=== PATIENT | male | born 1945 | race Two or more races ===

== ENCOUNTER 2016-09-30 16:46 | Inpatient (IN) | payer OTHER ==
[~2016-09-30] VITALS: Ht 175.3 cm; Wt 127.5 kg
[~2016-09-30 16:46] MED LIST: AMLODIPINE; ATENOLOL; ETOMIDATE 2MG/ML 10ML VIAL IV ONE; GLIPIZIDE; LASIX; LIPITOR; LISINOPRIL; SUCCINYLCHOLINE CHLORIDE 200MG/10ML VIAL IV ONE
[2016-09-30] MEDS ORDERED: SODIUM CHLORIDE 0.9% 1,000 ML IV ONE (17:06)
[2016-09-30] MEDS ORDERED: ETOMIDATE 2MG/ML 10ML VIAL IV ONE (17:15)
[2016-09-30] MEDS ORDERED: SUCCINYLCHOLINE CHLORIDE 200MG/10ML VIAL IV ONE (17:15)
[2016-09-30] MEDS ORDERED: PROPOFOL 10MG/ML 100ML 100 ML IV SCH (17:15)
[2016-09-30 17:46] LABS: BASOPHILS % 0.6 % (0.0-2.0); EOSINOPHILS % 2.1 % (0.0-5.0); HEMATOCRIT. 43.5 % (42.0-52.0); HEMOGLOBIN. 13.9 g/dL (14.0-18.0); LYMPHOCYTES % 25.5 % (20.0-50.0); MEAN CORPUSCULAR HEMOGLOBIN 26.8 pg (28.0-32.0); MEAN CORPUSCULAR VOLUME 83.7 fL (80.0-94.0); MEAN PLATELET VOLUME 9.6 fl (7.4-10.4); MONOCYTES % 6.7 % (2.0-8.0); NEUTROPHILS % 65.1 % (40.0-76.0); PLATELET 139 x1000/uL (130-400); RED BLOOD CELL COUNT 5.19 mill/uL (4.7-6.1); RED CELL DISTRIBUTION WIDTH 14.8 % (11.6-14.6)
[2016-09-30 17:49] LABS: CHLORIDE 100 mEq/L (98-107)
[2016-09-30 17:50] LABS: CARBON DIOXIDE 31 mEq/L (21-32)
[2016-09-30 17:51] LABS: INR 1.2; PROTHROMBIN TIME 12.9 sec
[2016-09-30 17:54] LABS: AMMONIA 34 uMol/L (<32); ETHANOL BLOOD < 10 mg/dL
[2016-09-30] MEDS ORDERED: SODIUM CHLORIDE 0.9% 2,500 ML IV ONE (18:13)
[2016-09-30] MEDS ORDERED: LEVOFLOXACIN 750MG PREMIX 150 ML IV ONE (18:15)
[2016-09-30] MEDS ORDERED: EPINEPHRINE 1 MG in SODIUM CHLORIDE 0.9% 249 ML IV PRN (18:15)
[2016-09-30] MEDS ORDERED: PIPERACILLIN SODIUM/TAZOBACTAM 4.5 G in DEXT 5% WATER 100 ML IV SCH (18:15)
[2016-09-30] MEDS ORDERED: VANCOMYCIN 1,500 MG in DEXT 5% WATER 250 ML IV SCH (18:15)
[2016-09-30 18:17] LABS: CLARITY URINE CLEAR (CLEAR); COLOR URINE YELLOW (YELLOW); GLUCOSE URINE NEGATIVE (NEGATIVE); KETONES URINE NEGATIVE (NEGATIVE); LEUKOCYTE ESTERASE URINE NEGATIVE (NEGATIVE); NITRITE URINE NEGATIVE (NEGATIVE); OCCULT BLOOD URINE 2+ (NEGATIVE); PH URINE 6.5 (4.5-8.0); PROTEIN URINE 3+ (NEGATIVE); SPECIFIC GRAVITY URINE 1.012 (1.005-1.030); UROBILINOGEN URINE 0.2 E.U./dL (0.2-1.0)
[2016-09-30 18:24] LABS: BG BASE EXCESS 0.6 mmol/L (-2.0-2.0); BG CARBOXYHEMOGLOBIN 0.4 % (0.5-1.5); BG DEOXYHEMOGLOBIN 1.5 % (0.0-5.0); BG HCO3 ACT 27.1 mmol/L (22.0-26.0); BG METHEMOGLOBIN 0.3 % (0.0-1.5); BG OXYGEN SATURATION 98.5 % (92.0-98.5); BG OXYHEMOGLOBIN 97.8 % (94.0-97.0); BG PCO2 51.3 mmHg (35.0-45.0); BG PH 7.341 (7.350-7.450); BG PO2 154.2 mmHg (75.0-100.0); BG SAMPLE SITE RIGHT RADIAL; BG TIDAL VOLUME(mL) 500 mL; BG TOTAL HEMOGLOBIN 13.3 g/dL (12.0-18.0); BG VENT MODE VENT - A/C; BG VENT RATE 14 set
[2016-09-30] MEDS ORDERED: EPINEPHRINE 1 MG in SODIUM CHLORIDE 0.9% 250 ML IV PRN (18:30)
[2016-09-30 18:56] LABS: *AMPHETAMINES SCREEN URINE NEGATIVE (NEGATIVE); *BARBITURATES SCREEN URINE NEGATIVE (NEGATIVE); *BENZODIAZEPINES SCREEN URINE NEGATIVE (NEGATIVE); *COCAINE SCREEN URINE NEGATIVE (NEGATIVE); CANNABINOID URINE SCREEN PRESUMTIVE POSITIVE (NEGATIVE); METHADONE URINE SCREEN NEGATIVE (NEGATIVE); OPIATES URINE SCREEN NEGATIVE (NEGATIVE); PHENCYCLIDINE URINE SCREEN NEGATIVE (NEGATIVE)
[2016-09-30] MEDS ORDERED: LORAZEPAM 2MG/ML CPJ IV ONE ×2 (19:15→19:30)
[2016-09-30] MEDS ORDERED: MIDAZOLAM HCL 50 MG in DEXTROSE 5% WATER 40 ML IV ONE ×2 (20:15→20:30)
[2016-09-30] MEDS ORDERED: MIDAZOLAM HCL 2 MG/2 ML VIAL IV ONE (21:00)
[2016-09-30 22:26] VITALS: BP 103/53
[2016-09-30] MEDS ORDERED: SODIUM CHLORIDE 0.9% 1,000 ML IV SCH (22:27)
[2016-09-30] MEDS ORDERED: IPRATROPIUM/ALBUTEROL 0.5-3(2.5)MG/3ML NEB INH PRN (22:30)
[2016-09-30] MEDS ORDERED: ONDANSETRON HCL 4MG/2ML VIAL IV PRN (22:30)
[2016-09-30] MEDS ORDERED: LORAZEPAM 2MG/ML CPJ IV PRN (22:30)
[2016-09-30] MEDS ORDERED: DEXTROSE 50% WATER 50ML SYRINGE IV PRN (22:30)
[2016-09-30] MEDS ORDERED: DIPHENHYDRAMINE 50MG/ML VIAL IV PRN (22:30)
[2016-09-30] MEDS ORDERED: ACETAMINOPHEN 650MG SUPP PR PRN (22:30)
[2016-09-30 22:45] VITALS: BP 120/57
[2016-09-30 23:00] VITALS: BP 118/58
[2016-09-30 23:15] VITALS: BP 116/55
[2016-09-30 23:30] VITALS: BP 115/57
[2016-09-30] MEDS ORDERED: DOPAMINE 400MG PREMIX 250 ML IV PRN (23:30)
[2016-09-30] MEDS ORDERED: IPRATROPIUM/ALBUTEROL 0.5-3(2.5)MG/3ML NEB HHN PRN (23:30)
[2016-09-30] MEDS ORDERED: NOREPINEPHRINE 4 MG in DEXT 5% WATER 246 ML IV PRN (23:30)
[2016-09-30 23:45] VITALS: BP_SYST 103; BP_SYST 112; BP_DIAS 51; BP_DIAS 53
[2016-10-01] VITALS (96 sets, daily range): BP systolic 83–142; BP diastolic 41–86
[2016-10-01] MEDS ORDERED: DEXT 5%/0.45% NACL 1000ML 1,000 ML IV SCH
[2016-10-01] MEDS: IPRATROPIUM/ALBUTEROL 0.5-3(2.5)MG/3ML NEB HHN SCH ×7 (00:06→23:37)
[2016-10-01] MEDS: INSULIN LISPRO 100 UNITS/ML SUBCUT SCH ×4 (00:37→17:42)
[2016-10-01] MEDS: BLOOD SUGAR DIAGNOSTIC STRIP TEST SCH ×4 (00:38→17:24)
[2016-10-01] MEDS ORDERED: PIPERACILLIN/TAZ 3.375G PREMIX 50 ML IV SCH (04:00)
[2016-10-01 05:55] LABS: BASOPHILS % 0.5 % (0.0-2.0); EOSINOPHILS % 0.8 % (0.0-5.0); HEMATOCRIT. 40.2 % (42.0-52.0); LYMPHOCYTES % 9.4 % (20.0-50.0); MEAN CORPUSCULAR HEMOGLOBIN 26.7 pg (28.0-32.0); MEAN CORPUSCULAR VOLUME 82.6 fL (80.0-94.0); MEAN PLATELET VOLUME 10.3 fl (7.4-10.4); MONOCYTES % 9.9 % (2.0-8.0); NEUTROPHILS % 79.4 % (40.0-76.0); PLATELET 125 x1000/uL (130-400); RED BLOOD CELL COUNT 4.86 mill/uL (4.7-6.1); RED CELL DISTRIBUTION WIDTH 15.3 % (11.6-14.6)
[2016-10-01 06:38] LABS: CARBON DIOXIDE 27 mEq/L (21-32); CHLORIDE 103 mEq/L (98-107); TROPONIN I < 0.02 ng/mL (0.00-0.04)
[2016-10-01] MEDS: DEXT 5%/0.9% NACL 1,000 ML IV SCH ×2 (08:15→21:41)
[2016-10-01] MEDS ORDERED: INSULIN LISPRO 100 UNITS/ML SUBCUT SCH (08:20)
[2016-10-01] MEDS ORDERED: GLUCAGON,HUMAN RECOMBINANT 1MG/VIAL IV NR (08:30)
[2016-10-01] MEDS ORDERED: SODIUM CHLORIDE 0.9% 500 ML IV ONE (08:30)
[2016-10-01] MEDS ORDERED: CEFEPIME 1,000 MG in DEXTROSE 5% WATER 50 ML IV SCH (08:45)
[2016-10-01 08:59] LABS: BG BASE EXCESS 2.3 mmol/L (-2.0-2.0); BG CARBOXYHEMOGLOBIN 0.4 % (0.5-1.5); BG DEOXYHEMOGLOBIN 2.4 % (0.0-5.0); BG FRACTION INSPIRED OXYGEN 90; BG HCO3 ACT 26.8 mmol/L (22.0-26.0); BG METHEMOGLOBIN 0.2 % (0.0-1.5); BG OXYGEN SATURATION 97.6 % (92.0-98.5); BG PH 7.433 (7.350-7.450); BG PO2 105.6 mmHg (75.0-100.0); BG SAMPLE SITE LEFT RADIAL; BG TIDAL VOLUME(mL) 500 mL; BG VENT MODE VENT - A/C; BG VENT RATE 14 set
[2016-10-01] MEDS: DOPAMINE 400MG PREMIX 250 ML IV PRN ×2 (09:00→21:48)
[2016-10-01] MEDS ORDERED: BLOOD SUGAR DIAGNOSTIC STRIP TEST SCH (09:00)
[2016-10-01 09:03] LABS: T4 FREE 1.05 ng/dL (0.76-1.46)
[2016-10-01] MEDS: ASPIRIN 81MG TABLET PO SCH (09:16)
[2016-10-01] MEDS: PANTOPRAZOLE SODIUM 40 MG/VIAL IV SCH (09:17)
[2016-10-01] MEDS: ENOXAPARIN 40MG/0.4ML SYR SUBCUT SCH (09:17)
[2016-10-01] MEDS: PROPOFOL 10MG/ML 100ML 100 ML IV PRN ×3 (09:55→22:35)
[2016-10-01] MEDS: CEFEPIME 2,000 MG in DEXT 5% WATER 100 ML IV SCH (10:45)
[2016-10-01 11:11] LABS: *AMPHETAMINES SCREEN URINE NEGATIVE (NEGATIVE); *BARBITURATES SCREEN URINE NEGATIVE (NEGATIVE); *BENZODIAZEPINES SCREEN URINE PRESUMTIVE POSITIVE (NEGATIVE); *COCAINE SCREEN URINE NEGATIVE (NEGATIVE); CANNABINOID URINE SCREEN PRESUMTIVE POSITIVE (NEGATIVE); METHADONE URINE SCREEN NEGATIVE (NEGATIVE); OPIATES URINE SCREEN NEGATIVE (NEGATIVE); PHENCYCLIDINE URINE SCREEN NEGATIVE (NEGATIVE)
[2016-10-01] MEDS: METRONIDAZOLE 500 MG PREMIX 100 ML IV SCH ×2 (11:57→17:33)
[2016-10-01 12:55] LABS: HEPATITIS B SURFACE ANTIGEN NEGATIVE
[2016-10-01 13:23] LABS: HEPATITIS B CORE AB IGM NEGATIVE
[2016-10-01 13:25] LABS: HEPATITIS A AB IGM NEGATIVE (NEGATIVE)
[2016-10-01 15:45] LABS: CREATINE KINASE 298 IU/L (39-308); CREATINE KINASE MB FRACTION 2.6 ng/mL (0.5-3.6); TROPONIN I < 0.02 ng/mL (0.00-0.04)
[2016-10-01 23:05] LABS: CREATINE KINASE MB FRACTION 2.4 ng/mL (0.5-3.6)
[2016-10-02] VITALS (41 sets, daily range): BP systolic 102–134; BP diastolic 50–71
[2016-10-02] MEDS: METRONIDAZOLE 500 MG PREMIX 100 ML IV SCH ×4 (00:24→21:04)
[2016-10-02] MEDS: INSULIN LISPRO 100 UNITS/ML SUBCUT SCH ×5 (00:25→23:39)
[2016-10-02] MEDS: IPRATROPIUM/ALBUTEROL 0.5-3(2.5)MG/3ML NEB HHN SCH ×6 (03:22→23:50)
[2016-10-02] MEDS: PROPOFOL 10MG/ML 100ML 100 ML IV PRN ×4 (05:35→21:05)
[2016-10-02] MEDS: BLOOD SUGAR DIAGNOSTIC STRIP TEST SCH ×5 (06:00→23:39)
[2016-10-02 07:38] LABS: BASOPHILS % 0.3 % (0.0-2.0); EOSINOPHILS % 1.4 % (0.0-5.0); HEMATOCRIT. 39.1 % (42.0-52.0); HEMOGLOBIN. 12.7 g/dL (14.0-18.0); LYMPHOCYTES % 8.3 % (20.0-50.0); MEAN CORPUSCULAR HEMOGLOBIN 27.1 pg (28.0-32.0); MEAN CORPUSCULAR VOLUME 83.2 fL (80.0-94.0); MEAN PLATELET VOLUME 10.8 fl (7.4-10.4); MONOCYTES % 10.6 % (2.0-8.0); NEUTROPHILS % 79.4 % (40.0-76.0); PLATELET 119 x1000/uL (130-400); RED CELL DISTRIBUTION WIDTH 15.1 % (11.6-14.6)
[2016-10-02] MEDS: ASPIRIN 81MG TABLET PO SCH (08:26)
[2016-10-02] MEDS: PANTOPRAZOLE SODIUM 40 MG/VIAL IV SCH (08:26)
[2016-10-02] MEDS: ENOXAPARIN 40MG/0.4ML SYR SUBCUT SCH (08:27)
[2016-10-02] MEDS: CEFEPIME 2,000 MG in DEXT 5% WATER 100 ML IV SCH (08:27)
[2016-10-02 09:39] LABS: BG BASE EXCESS -2.1 mmol/L (-2.0-2.0); BG CARBOXYHEMOGLOBIN 0.3 % (0.5-1.5); BG DEOXYHEMOGLOBIN 8.5 % (0.0-5.0); BG HCO3 ACT 23.1 mmol/L (22.0-26.0); BG METHEMOGLOBIN 0.4 % (0.0-1.5); BG OXYGEN SATURATION 91.4 % (92.0-98.5); BG OXYHEMOGLOBIN 90.8 % (94.0-97.0); BG PCO2 41.3 mmHg (35.0-45.0); BG PH 7.366 (7.350-7.450); BG PO2 65.8 mmHg (75.0-100.0); BG SAMPLE SITE RIGHT RADIAL; BG TIDAL VOLUME(mL) 500 mL; BG TOTAL HEMOGLOBIN 13.3 g/dL (12.0-18.0); BG VENT MODE VENT - A/C; BG VENT RATE 14 set
[2016-10-02] MEDS: DEXT 5%/0.9% NACL 1,000 ML IV SCH ×2 (10:25→23:33)
[2016-10-02] MEDS ORDERED: MAGNESIUM 1 G PREMIX 100 ML IV NR (10:30)
[2016-10-03] VITALS (79 sets, daily range): BP systolic 102–141; BP diastolic 49–77
[2016-10-03] MEDS: PROPOFOL 10MG/ML 100ML 100 ML IV PRN ×3 (03:58→21:28)
[2016-10-03 04:50] LABS: HEMATOCRIT. 37.1 % (42.0-52.0); HEMOGLOBIN. 12.2 g/dL (14.0-18.0); MEAN CORPUSCULAR HEMOGLOBIN 27.3 pg (28.0-32.0); MEAN CORPUSCULAR VOLUME 83.1 fL (80.0-94.0); MEAN PLATELET VOLUME 10.1 fl (7.4-10.4); PLATELET 100 x1000/uL (130-400); RED BLOOD CELL COUNT 4.47 mill/uL (4.7-6.1)
[2016-10-03] MEDS: IPRATROPIUM/ALBUTEROL 0.5-3(2.5)MG/3ML NEB HHN SCH ×5 (04:50→20:11)
[2016-10-03] MEDS: METRONIDAZOLE 500 MG PREMIX 100 ML IV SCH ×2 (05:57→13:11)
[2016-10-03] MEDS: BLOOD SUGAR DIAGNOSTIC STRIP TEST SCH ×3 (06:00→18:00)
[2016-10-03] MEDS: INSULIN LISPRO 100 UNITS/ML SUBCUT SCH ×3 (06:14→18:00)
[2016-10-03] MEDS ORDERED: BISACODYL 5MG TABLET PO PRN (08:00)
[2016-10-03 08:19] LABS: BG BASE EXCESS -1.4 mmol/L (-2.0-2.0); BG CARBOXYHEMOGLOBIN 0.3 % (0.5-1.5); BG DEOXYHEMOGLOBIN 4.5 % (0.0-5.0); BG FRACTION INSPIRED OXYGEN 50; BG HCO3 ACT 22.9 mmol/L (22.0-26.0); BG METHEMOGLOBIN 0.4 % (0.0-1.5); BG OXYGEN SATURATION 95.5 % (92.0-98.5); BG OXYHEMOGLOBIN 94.8 % (94.0-97.0); BG PCO2 37.1 mmHg (35.0-45.0); BG PH 7.408 (7.350-7.450); BG PO2 79.1 mmHg (75.0-100.0); BG SAMPLE SITE RIGHT RADIAL; BG TIDAL VOLUME(mL) 500 mL; BG TOTAL HEMOGLOBIN 11.9 g/dL (12.0-18.0); BG VENT MODE VENT - A/C; BG VENT RATE 14 set
[2016-10-03] MEDS: ENOXAPARIN 40MG/0.4ML SYR SUBCUT SCH (08:44)
[2016-10-03] MEDS: PANTOPRAZOLE SODIUM 40 MG/VIAL IV SCH (08:44)
[2016-10-03] MEDS: ASPIRIN 81MG TABLET PO SCH (08:44)
[2016-10-03] MEDS: MORPHINE SULFATE 2 MG/ML CPJ (NOT FOR IM USE) IV PRN ×2 (08:45→19:25)
[2016-10-03] MEDS: CEFEPIME 2,000 MG in DEXT 5% WATER 100 ML IV SCH (09:02)
[2016-10-03 10:49] LABS: PLATELET ESTIMATE DECREASED
[2016-10-03] MEDS ORDERED: LACTULOSE 20G/30ML UDC PO PRN ×2 (12:45→21:00)
[2016-10-03] MEDS: DEXT 5%/0.9% NACL 1,000 ML IV SCH (13:11)
== END 2016-10-03 21:20 | disposition other institution, planned readmission (95) | DRG 871 ==
LOC: ER 17:55 → ENRESERV 18:32 → MICUSO 18:32
PROVIDERS: ADMIT Internal Medicine; ATTEND Internal Medicine
PROC: 5A1945Z Respiratory Ventilation, 24-96 Consecutive Hours (ICD-10-PCS; principal; 2016-09-30)
PROC: 0BH17EZ Insertion of Endotracheal Airway into Trachea, Via Natural or Artificial Opening (ICD-10-PCS; 2016-09-30)
PROC: 02HV33Z Insertion of Infusion Device into Superior Vena Cava, Percutaneous Approach (ICD-10-PCS; 2016-09-30)
PROC: B548ZZA Ultrasonography of Superior Vena Cava, Guidance (ICD-10-PCS; 2016-09-30)
DX: A41.9 Sepsis, unspecified organism (principal); I50.33 Acute on chronic diastolic (congestive) heart failure; J96.01 Acute respiratory failure with hypoxia; R65.21 Severe sepsis with septic shock; J69.0 Pneumonitis due to inhalation of food and vomit; I13.0 Hypertensive heart and chronic kidney disease with heart failure and stage 1 through stage 4 chronic kidney disease, or unspecified chronic kidney disease; N17.9 Acute kidney failure, unspecified; Z68.41 Body mass index [BMI] 40.0-44.9, adult; D69.6 Thrombocytopenia, unspecified; E11.22 Type 2 diabetes mellitus with diabetic chronic kidney disease; E66.9 Obesity, unspecified; E78.00 Pure hypercholesterolemia, unspecified; E78.5 Hyperlipidemia, unspecified; G47.33 Obstructive sleep apnea (adult) (pediatric); I25.10 Atherosclerotic heart disease of native coronary artery without angina pectoris; I44.0 Atrioventricular block, first degree; I48.91 Unspecified atrial fibrillation; I49.1 Atrial premature depolarization; K40.20 Bilateral inguinal hernia, without obstruction or gangrene, not specified as recurrent; K80.20 Calculus of gallbladder without cholecystitis without obstruction; N18.9 Chronic kidney disease, unspecified; I25.2 Old myocardial infarction; W34.00XA Accidental discharge from unspecified firearms or gun, initial encounter; Z72.0 Tobacco use; Z79.899 Other long term (current) drug therapy; Z82.49 Family history of ischemic heart disease and other diseases of the circulatory system; Z83.3 Family history of diabetes mellitus; Z95.1 Presence of aortocoronary bypass graft
CPT/HCPCS: 31500; 36415; 36556; 36600; 51702; 70450; 71010; 71250; 74176; 78580; 80048; 80053; 80061; 80305; 80307; 80329; 81001; 82140; 82375; 82550; 82553; 82805; 82962; 83036; 83605; 83735; 83880; 84439; 84443; 84478; 84484; 85025; 85379; 85610; 86705; 86709; 86803; 87040; 87086; 87340; 93005; 93306; 93970; 94002; 94003; 94640; 96365; 96367; 96375; 99291; C9113; G0482; J0171; J0330; J0692; J1265; J1650; J1815; J1956; J2060; J2250; J2270; J2543; J2704; J3370; J3475; J3490; J7030; J7040; J7042; J7050; J7060; J7620; A4315